=== PATIENT | female | born 1950 | race Two or more races ===

== ENCOUNTER 2019-11-06 15:56 | Outpatient (CLI) | payer OTHER | END 2019-11-06 16:02 | disposition home or self-care (01) | LOC: RAD 15:56 | DX: M25.561 Pain in right knee (principal) ==

== ENCOUNTER → 2019-11-13 09:23 | Outpatient (CLI) | payer OTHER ==
[~2019-11-13 09:23] MED LIST: CRESTOR20 MG PO
== END | disposition home or self-care (01) ==
LOC: LAB 09:23
DX: D64.89 Other specified anemias (principal); E88.89 Other specified metabolic disorders; D68.8 Other specified coagulation defects; N39.0 Urinary tract infection, site not specified; Z22.322 Carrier or suspected carrier of Methicillin resistant Staphylococcus aureus; E55.9 Vitamin D deficiency, unspecified; M85.88 Other specified disorders of bone density and structure, other site; I20.8 Other forms of angina pectoris; Z76.89 Persons encountering health services in other specified circumstances

== ENCOUNTER 2019-11-19 05:50 | Day surgery (SDC) | payer OTHER | END 2019-11-19 11:55 | disposition home or self-care (01) | LOC: CIR.AMB 05:50 | DX: M23.221 Derangement of posterior horn of medial meniscus due to old tear or injury, right knee (principal); M23.241 Derangement of anterior horn of lateral meniscus due to old tear or injury, right knee; M12.261 Villonodular synovitis (pigmented), right knee ==